=== PATIENT | male | born 1965 | race Caucasian/White ===

== ENCOUNTER 2018-10-01 07:03 | Observation (INO) | payer OTHER ==
[2018-10-01] MEDS ORDERED: DILTIAZEM 25MG/5ML VIAL IV ONE (07:16)
[2018-10-01] MEDS ORDERED: ASPIRIN 81 MG CHEWABLE TABLET PO ONE (07:17)
--- NOTE | 2018-10-01 07:23 | Emergency Department Record ---
History of Present Illness - General Chief Complaint: Palpitations Stated Complaint: PALPITATIONS Time Seen by Provider: 10/01/18 07:16 Source: Patient, RN notes reviewed Mode of Arrival: EMS - History of Present Illness Initial Comments: patient said lightheaded and palpatations and never been diagnosised with a fib and he one other episode of being lightheaded. patient denies chest pain and states slightly sob and was shaking when he came in via ambulance from the restaurant. This started at 6:30 am today. under stress with placing father in assisted living. MD Complaint: Atrial fibrillation, "Heart racing", Palpitations Onset/Timin -: Hour(s) Associated Symptoms: Anxiety, Near-syncope - Related Data Home Medications Medication Instructions Recorded Confirmed Last Taken No Home Med [NO HOME MEDS] 10/01/18 10/01/18 Unknown Allergies Allergy/AdvReac Type Severity Reaction Status Date / Time Penicillins Allergy PT UNSURE Verified 10/01/18 07:10 OF REACTION Travel Screening - Travel/Exposure Within Last 30 Days Have you traveled within the last 30 days?: No Review of Systems Reviewed: No additional complaints except as noted below Constitutional: Reports: As per HPI. Denies: Chills, Fever, Malaise, Night sweats, Weakness, Weight change Eyes: Reports: As per HPI. Denies: Eye discharge, Eye pain, Photophobia, Vision change ENT: Reports: As per HPI. Denies: Congestion, Dental pain, Ear pain, Epistaxis , Hearing loss, Throat pain Respiratory: Reports: As per HPI. Denies: Cough, Dyspnea, Hemoptysis, Stridor, Wheezes Cardiovascular: Reports: As per HPI. Denies: Arrhythmia, Chest pain, Dyspnea on exertion, Edema, Murmurs, Orthopnea, Palpitations, Paroxysmal nocturnal dyspnea, Rheumatic Fever, Syncope Endocrine: Reports: As per HPI. Denies: Fatigue, Heat or cold intolerance, Polydipsia, Polyuria Gastrointestinal: Reports: As per HPI. Denies: Abdominal pain, Constipation, Diarrhea, Hematemesis, Hematochezia, Melena, Nausea, Vomiting Genitourinary: Reports: As per HPI. Denies: Dysuria, Frequency, Hematuria, Incontinence, Retention, Testicular pain, Testicular mass, Urgency Musculoskeletal: Reports: As per HPI. Denies: Arthralgia, Back pain, Gout, Joint swelling, Myalgia, Neck pain Skin: Reports: As per HPI. Denies: Bruising, Change in color, Change in hair/ nails, Lesions, Pruritus, Rash Neurological: Reports: As per HPI. Denies: Abnormal gait, Confusion, Headache, Numbness, Paresthesias, Seizure, Tingling, Tremors, Vertigo, Weakness Psychiatric: Reports: As per HPI. Denies: Anxiety, Auditory hallucinations, Depression, Homicidal thoughts, Suicidal thoughts, Visual hallucinations Hematological/Lymphatic: Reports: As per HPI. Denies: Anemia, Blood Clots, Easy bleeding, Easy bruising, Swollen glands Past Medical History - SOCIAL HISTORY Smoking Status: Former smoker Alcohol Use: Occasional Drug Use: None - RESPIRATORY Hx Respiratory Disorders: No - CARDIOVASCULAR Hx Cardio Disorders: No - NEURO Hx Neuro Disorders: No - GI Hx GI Disorders: No - Hx Genitourinary Disorders: No - ENDOCRINE Hx Endocrine Disorders: No - MUSCULOSKELETAL Hx Musculoskeletal Disorders: No - PSYCH Hx Psych Problems: No - HEMATOLOGY/ONCOLOGY Hx Hematology/Oncology Disorders: No Family Medical History Any Significant Family History?: No Physical Exam - General General Appearance: Alert, Oriented x3, Cooperative, Mild distress - Head Head exam: Normal inspection - Eye Eye exam: Normal appearance, PERRL Pupils: Normal accommodation - ENT ENT exam: Normal exam, Mucous membranes moist, Normal external ear exam, Normal orophraynx, TM's normal bilaterally Ear exam: Normal external inspection. negative: External canal tenderness Nasal Exam: Normal inspection. negative: Discharge, Sinus tenderness Mouth exam: Normal external inspection, Tongue normal Teeth exam: Normal inspection. negative: Dental caries Throat exam: Normal inspection. negative: Tonsillar erythema, Tonsillar exudate - Neck Neck exam: Normal inspection, Full ROM. negative: Tenderness - Respiratory Respiratory exam: Normal lung sounds bilaterally. negative: Respiratory distress - Cardiovascular Cardiovascular Exam: Normal heart sounds, Tachycardia - GI/Abdominal GI/Abdominal exam: Soft, Normal bowel sounds. negative: Tenderness - Rectal Rectal exam: Deferred - exam: Deferred - Extremities Extremities exam: Normal inspection, Full ROM, Normal capillary refill. negative: Tenderness - Back Back exam: Reports: Normal inspection, Full ROM. Denies: Muscle spasm, Rash noted, Tenderness - Neurological Neurological exam: Alert, Normal gait, Oriented X3, Reflexes normal - Psychiatric Psychiatric exam: Normal affect, Normal mood - Skin Skin exam: Dry, Intact, Normal color, Warm Course Vital Signs 10/01/18 07:05 Temperature 98.2 F Pulse Rate 92 H Respiratory 22 Rate Blood Pressure 150/113 Pulse Ox 100 - Reevaluation(s) Reevaluation #1: 10/01/18 07:53 patient converted to NSR about 15 minutes after cardizem 10 mg IV. Patient states she is feeling much better. Reevaluation #2: Patient is visiting from [place] 10/01/18 07:56 10/01/18 08:10 discussed casee with Ayesha and will admit to observation Medical Decision Making - Lab Data Result diagrams: 10/01/18 07:15 10/01/18 07:15 Disposition Clinical Impression: Atrial fibrillation with RVR Decision to Admit: Admit from ER Condition: (1) Good Forms: Patient Portal Access Time of Disposition: 07:58 Quality - Quality Measures Quality Measures: N/A - Blood Pressure Screening Does Patient Have Any of the Following: No Blood Pressure Classification: Hypertensive Reading Systolic Measurement: 150 Diastolic Measurement: 113 Screening for High Blood Pressure: < First Hypertensive BP, F/U Documented > [ G8950] First Hypertensive Follow-up Interventions: Referral to alternative/primary care provider.
[2018-10-01 07:25] LABS: BASO % 1.5 % (0-6); EOS % 2.5 % (0-6); GRAN % 51.8 % (47-80); HEMATOCRIT 47.2 % (42.0-52.0); HEMOGLOBIN 16.1 gm/dl (14.0-18.0); LYMPH % 34.4 % (16-45); MEAN CELL VOLUME 84.1 fl (81-97); MEAN CORPUSCULAR HEMOGLOBIN 28.7 pg (27-33); MEAN CORPUSCULAR HGB CONC 34.1 g/dl (32-36); MEAN PLATELET VOLUME 9.5 fl (7.4-10.4); MONO % 9.8 % (0-9); PLATELET COUNT 347 K/uL (130-400); RED BLOOD COUNT 5.61 M/uL (4.40-5.70); RED CELL DISTRIBUTION WIDTH 12.6 % (11.5-14.5); WHITE BLOOD COUNT W/O DIFF 6.9 K/uL (4.2-12.2)
[2018-10-01 07:39] LABS: BLOOD UREA NITROGEN 8 mg/dL (6-20); CREATININE 1.1 mg/dL (0.7-1.2); EST GLOMERULAR FILTRATION RATE > 60 mL/min
[2018-10-01] MEDS ORDERED: HEPARIN SODIUM 1000 UNIT/1 ML 10ML VIAL IVP ONE (07:41)
[2018-10-01 07:42] LABS: GLUCOSE,RANDOM 129 mg/dL (74-109)
[2018-10-01] MEDS ORDERED: HEPARIN SODIUM/D5W 25,000 UNITS/500 ML BAG IV SCH (07:45)
[2018-10-01 07:46] LABS: URINE APPEARANCE CLEAR; URINE BILIRUBIN NEGATIVE (NEGATIVE); URINE BLOOD NEGATIVE (NEGATIVE); URINE COLOR YELLOW; URINE KETONE NEGATIVE (NEGATIVE); URINE LEUKOCYTE ESTERASE NEGATIVE (NEGATIVE); URINE NITRITE NEGATIVE (NEGATIVE); URINE PROTEIN NEGATIVE (NEGATIVE); URINE UROBILINOGEN 0.2 E.U./dL (0.20 - 1.00)
[2018-10-01 07:55] LABS: THYROID STIMULATING HORMONE 1.58 uIU/mL (0.270-4.20)
[2018-10-01] MEDS ORDERED: METOPROLOL SUCC 50 MG TABLET PO ONE (07:56)
[2018-10-01] MEDS ORDERED: 0.9 % SODIUM CHLORIDE 1000ML 1,000 ML IV PRN (10:09)
--- NOTE | 2018-10-01 11:47 | History & Physical ---
History of Present Illness - Date of Service Date of Service for History & Physical: 10/01/18 - History of Present Illness Admitting Diagnosis: atrial fib with RVR History of Present Illness: Hari Morales is a 53 y/o male presenting to ED with acute onset of dizziness, weakness, palpitations, and shortness of breath for approximately 30 minutes prior to arrival. He is here from [place] visiting his father and preparing him to move to assisted living which he admits has been very stressful to him. Was in his usual state of health until 629 this morning. EMS was called to patient' s location and he was found to be in a-fib with RVR and brought right to ED. Patient denies any previous hx of a-fib or other cardiac disease. Does admit a couple of years ago he had chest discomfort and "a weird feeling in my chest" and was found to be dehydrated. He does have a prominent family history of CVA, [place], and HTN. He does have a past history of BJ and uses CPAP. In ED CBC unremarkable, APTT 28.6, troponin#1 <0.010, TSH 1.5, and urine glucose 100mg/dL. He was given a bolus of IV Cardizem 10mg and converted to NSR 15 minutes after bolus. Heparin drip per protocol. Treatment was followed by Metoprolol Succinate 25mg x1. Remained in NSR in ED. Admitted for echo, cardiology consult and further observation on telemetry. 10/01/18- Resting in bed comfortably, denies complaint. Reports he feels much better compared to how he felt this am. Awaiting Echo and cardiology consult today. No miko bleeding noted. PCP: established in [place] Travel Screening - Travel/Exposure Within Last 30 Days Have you traveled within the last 30 days?: Yes Location Detail:: from [facility] to [place] - Travel/Exposure Within Last Year Have you traveled outside the [place] in the last year?: No - Additonal Travel Details Have you been exposed to anyone with a communicable illness?: No - Travel Symptoms Symptom Screening: None Review of Systems Constitutional: Reports: As per HPI. Denies: Chills, Fever, Malaise, Night sweats, Weakness, Weight change Eyes: Reports: As per HPI. Denies: Eye discharge, Eye pain, Photophobia, Vision change ENT: Reports: As per HPI. Denies: Congestion, Dental pain, Ear pain, Epistaxis , Hearing loss, Throat pain Respiratory: Reports: As per HPI. Denies: Cough, Dyspnea, Hemoptysis, Stridor, Wheezes Cardiovascular: Reports: As per HPI. Denies: Arrhythmia, Chest pain, Dyspnea on exertion, Edema, Murmurs, Orthopnea, Palpitations, Paroxysmal nocturnal dyspnea, Rheumatic Fever, Syncope Endocrine: Reports: As per HPI. Denies: Fatigue, Heat or cold intolerance, Polydipsia, Polyuria Gastrointestinal: Reports: As per HPI. Denies: Abdominal pain, Constipation, Diarrhea, Hematemesis, Hematochezia, Melena, Nausea, Vomiting Genitourinary: Reports: As per HPI. Denies: Dysuria, Frequency, Hematuria, Incontinence, Retention, Testicular pain, Testicular mass, Urgency Musculoskeletal: Reports: As per HPI. Denies: Arthralgia, Back pain, Gout, Joint swelling, Myalgia, Neck pain Skin: Reports: As per HPI. Denies: Bruising, Change in color, Change in hair/ nails, Lesions, Pruritus, Rash Neurological: Reports: As per HPI. Denies: Abnormal gait, Confusion, Headache, Numbness, Paresthesias, Seizure, Tingling, Tremors, Vertigo, Weakness Psychiatric: Reports: As per HPI. Denies: Anxiety, Auditory hallucinations, Depression, Homicidal thoughts, Suicidal thoughts, Visual hallucinations Hematological/Lymphatic: Reports: As per HPI. Denies: Anemia, Blood Clots, Easy bleeding, Easy bruising, Swollen glands Past Medical History - SOCIAL HISTORY Smoking Status: Former smoker Alcohol Use: Occasional Drug Use: None - RESPIRATORY Hx Respiratory Disorders: No - CARDIOVASCULAR Hx Cardio Disorders: No - NEURO Hx Neuro Disorders: No - GI Hx GI Disorders: No - Hx Genitourinary Disorders: No - ENDOCRINE Hx Endocrine Disorders: No - MUSCULOSKELETAL Hx Musculoskeletal Disorders: No - PSYCH Hx Psych Problems: No - HEMATOLOGY/ONCOLOGY Hx Hematology/Oncology Disorders: No Family Medical History Any Significant Family History?: Yes Hx Cancer: Mother Hx Heart Disease: Father, Grandparents *Heart Comment: CVA Hx HTN: Father *HTN Comment: HTN Hx Stroke: Grandparents *Stroke Comment: grandmother H&P Meds/Allergies - Allergies Allergies: Allergies Allergy/AdvReac Type Severity Reaction Status Date / Time Penicillins Allergy PT UNSURE Verified 10/01/18 07:10 OF REACTION - Home Medications Home Medications Medication Instructions Recorded Confirmed Last Taken No Home Med [NO HOME MEDS] 10/01/18 10/01/18 Unknown - Active Medications Active Medications: Current Medications Aspirin (Ecotrin (Ec)) 325 mg PO DAILY [facility] Heparin Sodium/Dextrose (Heparin Sodium/D5w) 25,000 units in 500 mls @ 35.108 mls/hr IV TITRATE FABRICE; Protocol Last Admin: 10/01/18 07:53 Dose: 18 units/kg/hr, 35.108 mls/hr Sodium Chloride () 1,000 mls @ 15 mls/hr IV .Q24H PRN PRN Reason: LARGE VOLUME IV Metoprolol Succinate (Toprol Xl) 25 mg PO DAILY F[facility]RICE Physical Exam - Vital Signs Vital Signs: Vital Signs - Last 24 Hrs Temp Pulse Pulse Resp BP BP Pulse Ox 10/01/18 10:35 71 16 95 10/01/18 08:39 98 H 20 126/86 96 10/01/18 07:41 95 H 20 128/80 97 10/01/18 07:25 106 H 22 138/86 98 10/01/18 07:05 98.2 F 92 H 22 150/113 100 - General General Appearance: Alert, Oriented x3, Cooperative, No acute distress - Head Head exam: Normal inspection - Eye Eye exam: Normal appearance, PERRL Pupils: Normal accommodation - ENT ENT exam: Normal exam, Mucous membranes moist, Normal external ear exam, Normal orophraynx, TM's normal bilaterally Ear exam: Normal external inspection. negative: External canal tenderness Nasal Exam: Normal inspection. negative: Discharge, Sinus tenderness Mouth exam: Normal external inspection, Tongue normal Teeth exam: Normal inspection. negative: Dental caries Throat exam: Normal inspection. negative: Tonsillar erythema, Tonsillar exudate - Neck Neck exam: Normal inspection, Full ROM. negative: Tenderness - Respiratory Respiratory exam: Normal lung sounds bilaterally. negative: Respiratory distress - Cardiovascular Cardiovascular Exam: Regular rate, Normal rhythm, Normal heart sounds Peripheral Pulses: 3+: Dorsalis Pedis (R), Dorsalis Pedis (L) - GI/Abdominal GI/Abdominal exam: Soft, Normal bowel sounds. negative: Tenderness - Rectal Rectal exam: Deferred - exam: Deferred - Extremities Extremities exam: Normal inspection, Full ROM, Normal capillary refill. negative: Tenderness - Back Back exam: Reports: Normal inspection, Full ROM. Denies: Muscle spasm, Rash noted, Tenderness - Neurological Neurological exam: Alert, Normal gait, Oriented X3, Reflexes normal - Psychiatric Psychiatric exam: Normal affect, Normal mood - Skin Skin exam: Dry, Intact, Normal color, Warm Results - Labs Result Diagrams: 10/01/18 07:15 10/01/18 07:15 Labs Last 24 Hours: Laboratory Results - last 24 hr 10/01/18 10/01/18 10/01/18 07:15 07:15 07:15 WBC 6.9 RBC 5.61 Hgb 16.1 Hct 47.2 MCV 84.1 MCH 28.7 MCHC 34.1 RDW 12.6 Plt Count 347 MPV 9.5 Gran % 51.8 Lymphocytes % 34.4 Monocytes % 9.8 H Eosinophils % 2.5 Basophils % 1.5 APTT 28.6 Sodium 142 Potassium 3.5 Chloride 108 H Carbon Dioxide 19.0 L Anion Gap 15.0 BUN 8 Creatinine 1.1 Estimated GFR > 60 Random Glucose 129 H Calcium 9.0 Troponin T < 0.010 TSH 1.58 Urine Color Urine Appearance Urine pH Ur Specific [place] Urine Protein Urine Glucose (UA) Urine Ketones Urine Blood Urine Nitrite Urine Bilirubin Urine Urobilinogen Ur Leukocyte Esterase 10/01/18 07:40 WBC RBC Hgb Hct MCV MCH MCHC RDW Plt Count MPV Gran % Lymphocytes % Monocytes % Eosinophils % Basophils % APTT Sodium Potassium Chloride Carbon Dioxide Anion Gap BUN Creatinine Estimated GFR Random Glucose Calcium Troponin T TSH Urine Color Yellow Urine Appearance Clear Urine pH 6.0 Ur Specific [place] 1.010 Urine Protein Negative Urine Glucose (UA) 100 mg/dl H Urine Ketones Negative Urine Blood Negative Urine Nitrite Negative Urine Bilirubin Negative Urine Urobilinogen 0.2 Ur Leukocyte Esterase Negative - Imaging and Cardiology Chest x-ray Status: Report reviewed (no acute process) VTE H&P Assessment - Risk for VTE Risk for VTE: Yes Risk Level: Moderate Risk Assessment Date: 10/01/18 Risk Assessment Time: 11:52 VTE Orders Placed or Will Be Placed: Yes Plan - Detailed Diagnosis and Plan (1) Atrial fibrillation with RVR Current Visit: Yes Status: Acute Base Code: I48.91 - UNSPECIFIED ATRIAL FIBRILLATION Comment: 10/01/17 - New onset A-fib with RVR, converted to NSR after Cardizem 10mg IV bolus in ED followed by Metoprolol Succinate 25mg X 1 - Heparin drip per protocol with serial APTT - Troponin #1 normal - Tele - 02 as needed to keep SPO2>88% - Magnesium and phosphorus today - [id number] score 0 - Echo - Cardiololgy consult (2) DVT prophylaxis Current Visit: Yes Status: Acute Base Code: [id number] - Comment: 10/01/18 - Nursing to encourage frequent ambulation - Heparin drip per protocol with serial APTT (3) Full code status Current Visit: Yes Status: Acute Base Code: Z78.9 - OTHER SPECIFIED HEALTH STATUS Comment: 10/01/18
--- NOTE | 2018-10-01 13:02 | Discharge Summary ---
Providers Discharge Summary Date: 10/01/18 Date of admission: 10/01/18 09:11 Attending physician: RUTH NICOLE Consults: Consult Orders 10/01/18 10:09 Consult - Cardiology NOW Consulting Provider: NESTOR ABURTO Physician Instructions: Reason For Exam: atrial fib Does pt have current nutrition faculty member?: Not Established Physical Exam - Vital Signs Vital Signs: Vital Signs - Last 24 Hrs Temp Pulse Pulse Resp BP BP Pulse Ox 10/01/18 10:35 71 16 95 10/01/18 08:39 98 H 20 126/86 96 10/01/18 07:41 95 H 20 128/80 97 10/01/18 07:25 106 H 22 138/86 98 10/01/18 07:05 98.2 F 92 H 22 150/113 100 - General General Appearance: Alert, Oriented x3, Cooperative, No acute distress - Head Head exam: Normal inspection - Eye Eye exam: Normal appearance, PERRL Pupils: Normal accommodation - ENT ENT exam: Normal exam, Mucous membranes moist, Normal external ear exam, Normal orophraynx, TM's normal bilaterally Ear exam: Normal external inspection. negative: External canal tenderness Nasal Exam: Normal inspection. negative: Discharge, Sinus tenderness Mouth exam: Normal external inspection, Tongue normal Teeth exam: Normal inspection. negative: Dental caries Throat exam: Normal inspection. negative: Tonsillar erythema, Tonsillar exudate - Neck Neck exam: Normal inspection, Full ROM. negative: Tenderness - Respiratory Respiratory exam: Normal lung sounds bilaterally. negative: Respiratory distress - Cardiovascular Cardiovascular Exam: Regular rate, Normal rhythm, Normal heart sounds Peripheral Pulses: 3+: Dorsalis Pedis (R), Dorsalis Pedis (L) - GI/Abdominal GI/Abdominal exam: Soft, Normal bowel sounds. negative: Tenderness - Rectal Rectal exam: Deferred - exam: Deferred - Extremities Extremities exam: Normal inspection, Full ROM, Normal capillary refill. negative: Tenderness - Back Back exam: Reports: Normal inspection, Full ROM. Denies: Muscle spasm, Rash noted, Tenderness - Neurological Neurological exam: Alert, Normal gait, Oriented X3, Reflexes normal - Psychiatric Psychiatric exam: Normal affect, Normal mood - Skin Skin exam: Dry, Intact, Normal color, Warm Hospitalization - Hospitalization Admission Diagnosis: atrial fib with RVR - Problem List/Discharge Diagnosis (1) Atrial fibrillation with RVR Current Visit: Yes Status: Acute Base Code: I48.91 - UNSPECIFIED ATRIAL FIBRILLATION Comment: 10/01/17 - New onset A-fib with RVR, converted to NSR after Cardizem 10mg IV bolus in ED followed by Metoprolol Succinate 25mg X 1 - Troponin #1& 2 normal - Tele remained in NSR - 02 as needed to keep SPO2>88% - Magnesium and phosphorus today normal - [id number] score 0 - Echo- normal - Cardiololgy consult- recommends discharge home on Toprol XL 25mg QD with follow up [facility] nutrition faculty member including stress test upon return to [place] (2) DVT prophylaxis Current Visit: Yes Status: Acute Base Code: [id number] - Comment: 10/01/18 - Nursing to encourage frequent ambulation - Heparin drip per protocol (3) Full code status Current Visit: Yes Status: Acute Base Code: Z78.9 - OTHER SPECIFIED HEALTH STATUS Comment: 10/01/18 - Hospitalization Course Disposition: Home, Self-Care Hospital Course: Hari Morales is a 53 y/o male presenting to ED with acute onset of dizziness, weakness, palpitations, and shortness of breath for approximately 30 minutes prior to arrival. He is here from [place] visiting his father and preparing him to move to assisted living which he admits has been very stressful to him. Was in his usual state of health until 0630 this morning. EMS was called to patient' s location and he was found to be in a-fib with RVR and brought right to ED. Patient denies any previous hx of a-fib or other cardiac disease. Does admit a couple of years ago he had chest discomfort and "a weird feeling in my chest" and was found to be dehydrated. He does have a prominent family history of CVA, [place], and HTN. He does have a past history of BJ and uses CPAP. In ED CBC unremarkable, APTT 28.6, troponin#1 <0.010, TSH 1.5, and urine glucose 100mg/dL. He was given a bolus of IV Cardizem 10mg and converted to NSR 15 minutes after bolus. Heparin drip per protocol. Treatment was followed by Metoprolol Succinate 25mg x1. Remained in NSR in ED. Admitted for echo, cardiology consult and further observation on telemetry. 10/01/18- Resting in bed comfortably, denies complaint. Reports he feels much better compared to how he felt this am. Awaiting Echo and cardiology consult today. No miko bleeding noted. PCP: established in [place] Procedures: Imaging and X-Rays 10/01/18 07:17 CHEST 1 VIEW [RAD] Stat Cardiology Procedures 10/01/18 07:17 Db2 Developer NOW EKG NOW 10/01/18 10:09 EKG QDX2@0600 Echo W/CF & Cardiac Doppler ONCE Abnormal Labs: Abnormal Lab Results 10/01/18 10/01/18 10/01/18 Range/Units 07:15 07:15 07:40 Monocytes % 9.8 H (0-9) % Chloride 108 H (98-107) mmol/L Carbon Dioxide 19.0 L (22-29) mmol/L Random Glucose 129 H (74-109) mg/dL Urine Glucose (UA) 100 mg/dl H (NEGATIVE) Condition at Discharge: (1) Good Discharge Medications - Discharge Medications Prescriptions: Metoprolol Succinate [Toprol Xl] 25 mg PO DAILY 30 Days #30 tab.er.24h Home Medications: Ambulatory Orders Metoprolol Succinate [Toprol Xl] 25 mg PO DAILY 30 Days #30 tab.er.24h 10/01/18 [Last Taken Unknown] Discharge Plan - Discharge Instructions Activity at Discharge: Increase Activity as Tolerated Diet at Discharge: Low Fat, Low Cholesterol, Low Salt Diet Additional Instructions: Establish care with Foam Machine Operator upon return to home state Return to ED if any new occurrence of chest pain, dizziness, weakness Quality Measures - Quality Measures Quality Measures: Atrial Fibrillation & Atrial Flutter: Chronic Anticoagulation Therapy, Documentation of Current Medications in Medical Record, Screening for High Blood Pressure and F/U Documented - Current Medications Quality Measure: Measure #130: Documentation of Current Medications Documentation of Current Medications: <Current Medications Documented/Reviewed> [G4139] - Blood Pressure Screening Quality Measure: Screening for High Blood Pressure and Follow-Up Documented Does Patient Have Any of the Following: No Blood Pressure Classification: Hypertensive Reading Systolic Measurement: 150 Diastolic Measurement: 113 Screening for High Blood Pressure: < Normal BP, F/U Not Required > [G2383] - Atrial Fibrillation and Atrial Flutter Quality Measure: Atrial Fibrillation & Atrial Flutter: Chronic Anticoagulation Therapy Does Patient Have Any of the Following: No CHADS2 Risk Stratification: No Risk Factors Risk Stratification Summary: No risk factors or only one moderate risk factor exists. [G8970] Anticoagulation Therapy: Patient Not Eligible [G8970] - Elder Abuse Suspicion Index EASI Reference Information: Abdullahi BECKER, Janny C, Toby Woody, Vandana Corbett.Development and validation of a tool to assist physicians identification of elder abuse: The Elder Abuse Suspicion Index (EASI ). Journal of Elder Abuse and Neglect, 2008; 20 (3): 276-300.
--- NOTE | 2018-10-01 17:01 | Cardiology Consult ---
DATE OF CONSULTATION: 10/01/18 HISTORY: Mr. Morales is 53 years old, who presented was seen in consultation for atrial fibrillation with rapid ventricular rates. Mr. Morales recently arrived to [place] from [place], [place] to take care of his father who has health issues. He states he has been quite stressed for the past couple of weeks. He also has not been eating or drinking well. While he was at breakfast locally, he developed sudden onset of lightheadedness and dizziness. In addition, he was having difficulty catching his breath. EMS was called and noted that he was in atrial fibrillation with rapid ventricular rates. He denied any angina, TIA, syncope, or heart failure symptoms. PAST MEDICAL HISTORY: Significant for obstructive sleep apnea utilizing CPAP. No history of coronary artery disease, diabetes, hypertension, hyperlipidemia. PAST SURGICAL HISTORY: Tonsillectomy. Adenoidectomy. Surgery on vocal cord. MEDICATIONS INCLUDE: None. ALLERGIES: PENICILLIN WHEN HE WAS YOUNG AND DOES NOT RECALL THE REACTION. FAMILY HISTORY: No significant family history of coronary artery disease. 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 He reports a remote history of tobacco use and quit in 1982. ECG: Currently sinus rhythm with normal axis and intervals. LABS: His white count is 6.9, hemoglobin 16.1, platelets 347,000, troponin negative x1. TSH 1.58, creatinine 1.1, potassium 3.5. PHYSICAL EXAM: VITAL SIGNS: He is currently afebrile. Pulse is currently in the 70s. Blood pressure 138/86. Respiratory rate 22. He is 98%on room air. LUNGS: Clear to auscultation. CARDIAC EXAM: Normal. ABDOMEN: Soft. EXTREMITIES: Reveal no edema. IMPRESSION/PLAN: Mr. Morales is 53 years old with a CHADS VASc score of 0 with newly diagnosed atrial fibrillation. At this time, no anticoagulation for long- term CVA prophylaxis is required. His echocardiogram demonstrates normal ejection fraction and normal left atrial size. No significant structural abnormalities were noted. If second troponin is negative, he can be discharged with Metoprolol Succinate 25 mg daily. He can follow-up with his physician in [place], [place] and consider treadmill stress testing at that time. JOB NUMBER: [id number] [facility]
--- NOTE | 2018-10-02 05:48 | RADIOLOGY REPORT ---
EXAM: CHEST, SINGLE VIEW HISTORY: CARDIAC ARRHYTHMIA. TECHNIQUE: A single frontal view of the chest was obtained. Comparison: None. FINDINGS: The cardiac silhouette is within normal size limits. No focal pulmonary consolidation. No pleural effusion or pneumothorax. IMPRESSION: NO ACUTE LUNG FINDINGS. JOB NUMBER: [id number] [facility]
[2018-10-02] MEDS ORDERED: ASPIRIN 325 MG TAB ENTERIC-COATED PO SCH (10:00)
[2018-10-02] MEDS ORDERED: METOPROLOL SUCC 50 MG TABLET PO SCH (10:00)
== END 2018-10-01 14:05 | disposition home or self-care (01) ==
LOC: ER 07:03 → MEDSURG 09:11
PROVIDERS: ADMIT Internal Medicine; ATTEND Internal Medicine
DX: I48.91 Unspecified atrial fibrillation (principal); R42 Dizziness and giddiness; Z87.891 Personal history of nicotine dependence; G47.33 Obstructive sleep apnea (adult) (pediatric)
CPT/HCPCS: 83735; 84100; 85025; 85730; 80048; 81003; 84443; 84484; 71045; 93005; 93010; 94760; 93306; G0378; 96365; 96375; 99220; 99285

== ENCOUNTER 2018-10-01 15:17 | Emergency (ER) | payer OTHER ==
[2018-10-01] MEDS ORDERED: LORAZEPAM 2 MG/ML VIAL IV ONE (15:29)
--- NOTE | 2018-10-01 15:57 | Emergency Department Record ---
History of Present Illness - General Chief Complaint: Shortness of breath Stated Complaint: magalie,chest pressure Time Seen by Provider: 10/01/18 15:26 Source: Patient, RN notes reviewed Mode of Arrival: Ambulatory - History of Present Illness Initial Comments: patient was discharged about one hour ago and he was at the [facility] bank and became sob and heaviness in his chest and he came back to the ED for evaluation. This time patient in NSR and heart rate normal 80 and his oxygen levels were good and he said he is very anxious. Onset/Timin -: Minutes(s) Treatments Prior to Arrival: Asprin - Related Data Home Oxygen Therapy: No Previous Rx's Medication Instructions Recorded Hydroxyzine Pamoate [Vistaril] 25 mg PO Q6H #14 capsule 10/01/18 Metoprolol Succinate [Toprol Xl] 25 mg PO DAILY 30 Days #30 10/01/18 tab.er.24h Allergies Allergy/AdvReac Type Severity Reaction Status Date / Time Penicillins Allergy PT UNSURE Verified 10/01/18 07:10 OF REACTION Travel Screening - Travel/Exposure Within Last 30 Days Have you traveled within the last 30 days?: Yes Location Detail:: [place] - Travel Symptoms Symptom Screening: None Review of Systems Reviewed: No additional complaints except as noted below Constitutional: Reports: As per HPI. Denies: Chills, Fever, Malaise, Night sweats, Weakness, Weight change Eyes: Reports: As per HPI. Denies: Eye discharge, Eye pain, Photophobia, Vision change ENT: Reports: As per HPI. Denies: Congestion, Dental pain, Ear pain, Epistaxis , Hearing loss, Throat pain Respiratory: Reports: As per HPI. Denies: Cough, Dyspnea, Hemoptysis, Stridor, Wheezes Cardiovascular: Reports: As per HPI. Denies: Arrhythmia, Chest pain, Dyspnea on exertion, Edema, Murmurs, Orthopnea, Palpitations, Paroxysmal nocturnal dyspnea, Rheumatic Fever, Syncope Endocrine: Reports: As per HPI. Denies: Fatigue, Heat or cold intolerance, Polydipsia, Polyuria Gastrointestinal: Reports: As per HPI. Denies: Abdominal pain, Constipation, Diarrhea, Hematemesis, Hematochezia, Melena, Nausea, Vomiting Genitourinary: Reports: As per HPI. Denies: Dysuria, Frequency, Hematuria, Incontinence, Retention, Testicular pain, Testicular mass, Urgency Musculoskeletal: Reports: As per HPI. Denies: Arthralgia, Back pain, Gout, Joint swelling, Myalgia, Neck pain Skin: Reports: As per HPI. Denies: Bruising, Change in color, Change in hair/ nails, Lesions, Pruritus, Rash Neurological: Reports: As per HPI. Denies: Abnormal gait, Confusion, Headache, Numbness, Paresthesias, Seizure, Tingling, Tremors, Vertigo, Weakness Psychiatric: Reports: As per HPI. Denies: Anxiety, Auditory hallucinations, Depression, Homicidal thoughts, Suicidal thoughts, Visual hallucinations Hematological/Lymphatic: Reports: As per HPI. Denies: Anemia, Blood Clots, Easy bleeding, Easy bruising, Swollen glands Past Medical History - SOCIAL HISTORY Smoking Status: Former smoker Alcohol Use: None Drug Use: None - RESPIRATORY Hx Respiratory Disorders: No - CARDIOVASCULAR Hx Cardio Disorders: No - NEURO Hx Neuro Disorders: No - GI Hx GI Disorders: No - Hx Genitourinary Disorders: No - ENDOCRINE Hx Endocrine Disorders: No - MUSCULOSKELETAL Hx Musculoskeletal Disorders: No - PSYCH Hx Psych Problems: No - HEMATOLOGY/ONCOLOGY Hx Hematology/Oncology Disorders: No Family Medical History Any Significant Family History?: Yes Hx Cancer: Mother Hx Heart Disease: Father, Grandparents *Heart Comment: CVA Hx HTN: Father *HTN Comment: HTN Hx Stroke: Grandparents *Stroke Comment: grandmother Physical Exam - General General Appearance: Alert, Oriented x3, Cooperative, No acute distress - Head Head exam: Normal inspection - Eye Eye exam: Normal appearance, PERRL Pupils: Normal accommodation - ENT ENT exam: Normal exam, Mucous membranes moist, Normal external ear exam, Normal orophraynx, TM's normal bilaterally Ear exam: Normal external inspection. negative: External canal tenderness Nasal Exam: Normal inspection. negative: Discharge, Sinus tenderness Mouth exam: Normal external inspection, Tongue normal Teeth exam: Normal inspection. negative: Dental caries Throat exam: Normal inspection. negative: Tonsillar erythema, Tonsillar exudate - Neck Neck exam: Normal inspection, Full ROM. negative: Tenderness - Respiratory Respiratory exam: Normal lung sounds bilaterally. negative: Respiratory distress - Cardiovascular Cardiovascular Exam: Regular rate, Normal rhythm, Normal heart sounds - GI/Abdominal GI/Abdominal exam: Soft, Normal bowel sounds. negative: Tenderness - Rectal Rectal exam: Deferred - exam: Deferred - Extremities Extremities exam: Normal inspection, Full ROM, Normal capillary refill. negative: Tenderness - Back Back exam: Reports: Normal inspection, Full ROM. Denies: Muscle spasm, Rash noted, Tenderness - Neurological Neurological exam: Alert, Normal gait, Oriented X3, Reflexes normal - Psychiatric Psychiatric exam: Normal affect, Normal mood - Skin Skin exam: Dry, Intact, Normal color, Warm Course - Reevaluation(s) Reevaluation #1: 10/01/18 16:[address] Ferris and we gave the patient the patient the choice of staying overnight and seeing Dr. Jan Sneed tomorrow for a stress test or coming back as an outpatient to see Dr Jan Sneed tomorow and having the stress test as an outpatient. Patient decided he wanted to go home and see Dr. Jan Sneed tomorrow. Disposition Clinical Impression: Anxiety Disposition: Home, Self-Care Condition: (1) Good Instructions: Anxiety (ED), A-fib (Atrial Fibrillation) (ED) Additional Instructions: RETURN IF WORSE TO ED follow up tomorrow with the specialty clinic to see Dr. Jan Sneed at 8:30 am Prescriptions: Hydroxyzine Pamoate [Vistaril] 25 mg PO Q6H #14 capsule Forms: Patient Portal Access Time of Disposition: 16:59 Quality - Quality Measures Quality Measures: N/A - Blood Pressure Screening Does Patient Have Any of the Following: No Blood Pressure Classification: Pre-Hypertensive BP Reading Systolic Measurement: 121 Diastolic Measurement: 75 Screening for High Blood Pressure: < Pre-Hypertensive BP, F/U Documented > [ G8950] Pre-Hypertensive Follow-up Interventions: Referral to alternative/primary care provider.
== END 2018-10-01 17:31 | disposition home or self-care (01) ==
LOC: ER 15:17
DX: R07.89 Other chest pain (principal); F41.9 Anxiety disorder, unspecified; R06.02 Shortness of breath; I48.91 Unspecified atrial fibrillation; Z87.891 Personal history of nicotine dependence
CPT/HCPCS: 84484; 85379; 93005; 93010; 96374; 99284

== ENCOUNTER 2018-10-02 16:30 | Emergency (ER) | payer OTHER ==
--- NOTE | 2018-10-02 17:23 | Emergency Department Record ---
History of Present Illness - General Chief complaint: Fatigue and Weakness Stated complaint: A FIB Time Seen by Provider: 10/02/18 16:45 Source: Patient Mode of Arrival: Wheelchair Limitations: No limitations - History of Present Illness Initial comments: The patient is here due to developing rapid Afib during a stress test and hour ago. He was admitted to the hospital yesterday for new onset Afib and was at his Stress test today when the event occurred. Presently the patient is feeling better and denies any CP, SOB, or BRUNA but does feel very anxious. He denies any UGALDE or visual changes. The patient has no cardiac risk factors. MD Complaint: Generalized weakness Onset/Timin -: Minutes(s) Associated Symptoms: Denies other symptoms - Nick Coma Scale Eye Response: (4) Open spontaneously Motor Response: (6) Obeys commands Verbal Response: (5) Oriented Nick Total: 15 - Related Data Previous Rx's Medication Instructions Recorded Hydroxyzine Pamoate [Vistaril] 25 mg PO Q6H #14 capsule 10/01/18 Metoprolol Succinate [Toprol Xl] 25 mg PO DAILY 30 Days #30 10/01/18 tab.er.24h Allergies Allergy/AdvReac Type Severity Reaction Status Date / Time Penicillins Allergy PT UNSURE Verified 10/02/18 16:57 OF REACTION Travel Screening - Travel/Exposure Within Last 30 Days Have you traveled within the last 30 days?: No - Travel/Exposure Within Last Year Have you traveled outside the [place] in the last year?: No - Additonal Travel Details Have you been exposed to anyone with a communicable illness?: No - Travel Symptoms Symptom Screening: None Review of Systems Constitutional: Denies: Chills, Fever Eyes: Denies: Eye discharge ENT: Denies: Congestion Respiratory: Denies: Cough, Dyspnea Cardiovascular: Reports: Arrhythmia. Denies: Chest pain Endocrine: Reports: Fatigue Gastrointestinal: Denies: Nausea Genitourinary: Denies: Dysuria Musculoskeletal: Denies: Arthralgia Skin: Denies: Bruising Past Medical History - SOCIAL HISTORY Smoking Status: Former smoker Alcohol Use: Occasional Alcohol Use Comment: 2 beers daily Drug Use: None - RESPIRATORY Hx Respiratory Disorders: No - CARDIOVASCULAR Hx Cardio Disorders: No - NEURO Hx Neuro Disorders: No - GI Hx GI Disorders: No - Hx Genitourinary Disorders: No - ENDOCRINE Hx Endocrine Disorders: No - MUSCULOSKELETAL Hx Musculoskeletal Disorders: No - PSYCH Hx Psych Problems: No - HEMATOLOGY/ONCOLOGY Hx Hematology/Oncology Disorders: No Family Medical History Any Significant Family History?: No Hx Cancer: Mother Hx Heart Disease: Father, Grandparents *Heart Comment: CVA Hx HTN: Father *HTN Comment: HTN Hx Stroke: Grandparents *Stroke Comment: grandmother Physical Exam - General General Appearance: Alert, Oriented x3, Cooperative, No acute distress - Head Head exam: Atraumatic, Normocephalic, Normal inspection - Eye Eye exam: Normal appearance, PERRL, EOMI - ENT Throat exam: Normal inspection. negative: Tonsillar erythema, Tonsillar exudate - Neck Neck exam: Normal inspection, Full ROM. negative: Tenderness - Respiratory Respiratory exam: Normal lung sounds bilaterally. negative: Respiratory distress - Cardiovascular Cardiovascular Exam: Regular rate, Normal rhythm, Normal heart sounds - GI/Abdominal GI/Abdominal exam: Soft, Normal bowel sounds. negative: Tenderness - Extremities Extremities exam: Normal inspection, Full ROM, Normal capillary refill. negative: Tenderness - Back Back exam: Reports: Normal inspection - Neurological Neurological exam: Alert, Normal gait. negative: Abnormal gait, Motor sensory deficit - Psychiatric Psychiatric exam: negative: Anxious Course Vital Signs 10/02/18 16:38 Temperature 97.7 F Pulse Rate 105 H Respiratory 20 Rate Blood Pressure 134/88 Pulse Ox 98 - Reevaluation(s) Reevaluation #1: The patient is doing very well at this time. He is going in and out of Afib but his rate is controlled in the Afib. 10/02/18 17:41 Reevaluation #2: The patient is doing very well at this time. He is in NSR at this time but due to the intermittent Afib we will place the patient on Heparin. I did discuss the case with Dr. Mckeon at [facility] and he does recommend transfer to [facility] on the medical service. I also did discuss the case with Dr. Pelaez who does accept him to the medical service at [facility] and will consult Cardiology. 10/02/18 17:54 10/02/18 18:03 Medical Decision Making - Data Complexity MDM Data: Labs Ordered and/or Reviewed, EKG Ordered and/or Reviewed - Lab Data Result diagrams: 10/02/18 16:50 10/02/18 16:50 - EKG Data -: EKG Interpreted by Me EKG: No Acute Changes (Afib at [address]-T changes.) Disposition Disposition: Transfer Clinical Impression: Atrial fibrillation with RVR Disposition: Acute Care Hospital Transfer Transfer To: [facility] Reason For Transfer: Cardiology Accepting Physician: Latanya Time Discussed w/Accepting Physician: 18:04 Condition: (2) Stable Forms: Patient Portal Access Time of Disposition: 18:04 Quality - Quality Measures Quality Measures: N/A - Blood Pressure Screening View Details: Yes Does Patient Have Any of the Following: No Blood Pressure Classification: Pre-Hypertensive BP Reading Systolic Measurement: 134 Diastolic Measurement: 88 Screening for High Blood Pressure: < Pre-Hypertensive BP, F/U Documented > [ G8950] Pre-Hypertensive Follow-up Interventions: Referral to alternative/primary care provider.
[2018-10-02 17:48] LABS: BASO % 1.3 % (0-6); EOS % 2.4 % (0-6); GRAN % 49.7 % (47-80); HEMATOCRIT 44.7 % (42.0-52.0); HEMOGLOBIN 15.4 gm/dl (14.0-18.0); LYMPH % 38.3 % (16-45); MEAN CELL VOLUME 83.6 fl (81-97); MEAN CORPUSCULAR HEMOGLOBIN 28.8 pg (27-33); MEAN CORPUSCULAR HGB CONC 34.5 g/dl (32-36); MEAN PLATELET VOLUME 10.1 fl (7.4-10.4); MONO % 8.3 % (0-9); PLATELET COUNT 345 K/uL (130-400); RED BLOOD COUNT 5.35 M/uL (4.40-5.70); RED CELL DISTRIBUTION WIDTH 12.5 % (11.5-14.5); WHITE BLOOD COUNT W/O DIFF 9.3 K/uL (4.2-12.2)
[2018-10-02] MEDS ORDERED: HEPARIN SODIUM 1000 UNIT/1 ML 10ML VIAL IVP ONE (17:48)
[2018-10-02 17:49] LABS: URINE APPEARANCE CLEAR; URINE BILIRUBIN NEGATIVE (NEGATIVE); URINE BLOOD NEGATIVE (NEGATIVE); URINE COLOR YELLOW; URINE GLUCOSE (UA) NEGATIVE (NEGATIVE); URINE KETONE NEGATIVE (NEGATIVE); URINE LEUKOCYTE ESTERASE NEGATIVE (NEGATIVE); URINE NITRITE NEGATIVE (NEGATIVE); URINE PROTEIN NEGATIVE (NEGATIVE); URINE UROBILINOGEN 0.2 E.U./dL (0.20 - 1.00)
[2018-10-02] MEDS ORDERED: HEPARIN SODIUM/D5W 25,000 UNITS/500 ML BAG IV SCH (18:00)
[2018-10-02] MEDS ORDERED: METOPROLOL TART 5 MG/5 ML VIAL IV ONE (18:04)
[2018-10-02 18:06] LABS: PARTIAL THROMBOPLASTIN TIME 28.7 SECONDS (24.5-39.1); PROTHROMBIN TIME (PATIENT) 9.9 SECONDS (9.5-12.1)
[2018-10-02 18:16] LABS: BLOOD UREA NITROGEN 9 mg/dL (6-20); EST GLOMERULAR FILTRATION RATE > 60 mL/min
[2018-10-02 18:19] LABS: GLUCOSE,RANDOM 99 mg/dL (74-109)
[2018-10-02 18:21] LABS: CREATINE PHOSPHOKINASE 224 U/L (39-308)
[2018-10-02 18:23] LABS: CKMB 3.4 ng/mL (<6.73)
[2018-10-02 18:59] LABS: THYROID STIMULATING HORMONE 3.55 uIU/mL (0.270-4.20)
== END 2018-10-02 21:05 | disposition short-term general hospital (02) ==
LOC: ER 16:30
DX: I48.0 Paroxysmal atrial fibrillation (principal); R42 Dizziness and giddiness; R53.1 Weakness; Z87.891 Personal history of nicotine dependence
CPT/HCPCS: 80048; 81003; 82550; 82553; 84443; 84484; 85025; 85610; 85730; 93005; 93010; 96365; 96366; 96375; 99285